=== PATIENT | female | born 1975 | race Hispanic/Latino ===

== ENCOUNTER 2019-08-26 14:37 | Emergency (ER) | payer MEDICAID ==
[2019-08-26] MEDS ORDERED: SODIUM CHLORIDE 0.9% 1000ML 1,000 ML IVS ONE (14:41)
[2019-08-26] MEDS ORDERED: ASPIRIN (CHEWABLE) 81 MG TAB PO ONE (14:41)
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
[2019-08-26] MEDS ORDERED: ONDANSETRON INJ 4 MG/2 ML VIAL IV ONE (15:05)
[2019-08-26] MEDS ORDERED: ACETAMINOPHEN 500 MG TAB PO ONE (15:05)
--- NOTE | 2019-08-26 15:06 | RAD ---
EXAM DESCRIPTION: Chest,1 View CLINICAL HISTORY: pain COMPARISON: None available TECHNIQUE: AP portable chest FINDINGS: The lungs are clear. There is no infiltrate or effusion. The heart is normal size. A poor respiratory effect is observed. Extensive lumbar fusion is observed. IMPRESSION: Poor inspiratory effect otherwise unremarkable chest Electronically signed by: Chay Rashid MD 08/26/2019 3:05 PM CDT
--- NOTE | 2019-08-26 15:54 | CT ---
EXAM DESCRIPTION: Head CLINICAL HISTORY: syncope COMPARISON: None available TECHNIQUE: Contiguous axial images through the head were obtained without intravenous contrast administration. Sagittal and coronal reconstructions were reviewed. FINDINGS: No evidence of acute major vascular territorial infarct or intraparenchymal hemorrhage. No intra-axial or extra-axial fluid collections are identified. The ventricles and cisterns appear normal in caliber. The sella and suprasellar regions appear normal. The structures of the posterior fossa are intact. The globes are intact bilaterally. Mucosal thickening of the bilateral maxillary sinuses, sphenoid sinuses, ethmoid air cells and frontal sinuses.. Review of the bones demonstrates no gross abnormality. IMPRESSION: No CT evidence of acute intracranial process. Mucosal thickening of all the paranasal sinuses. Clinical correlation for sinusitis is recommended. This exam was performed according to our departmental dose-optimization program, which includes automated exposure control, adjustment of the mA and/or kV according to patient size and/or use of iterative reconstruction technique. Electronically signed by: Stephanie Tavares MD 08/26/2019 3:53 PM CDT
--- NOTE | 2019-08-26 15:57 | CT ---
EXAM DESCRIPTION: Abdomen/Pelvis w/Contrast CLINICAL HISTORY: 44 years Female, pain vomiting COMPARISON: None available. TECHNIQUE: Contiguous 3 mm axial images were obtained from the lung bases to the level of the proximal femora after the administration of intravenous and oral contrast. Sagittal and coronal reconstructions were reviewed. FINDINGS: THORAX: The imaged lower thorax demonstrates no gross abnormality. LIVER: The liver demonstrates normal size and density with no intrahepatic biliary ductal dilatation or focal masses. GALLBLADDER: Surgically absent. PANCREAS: Appears normal with no cystic or solid lesions. SPLEEN: Normal ADRENAL GLANDS: Normal with no nodules or masses. KIDNEYS: Both kidneys enhance symmetrically with no hydronephrosis or nephrolithiasis or perinephric fluid collections. No focal masses are identified. The visualized ureters appear grossly unremarkable. STOMACH: Small hiatal hernia. The stomach is not well-distended limiting detailed evaluation. SMALL BOWEL: The small bowel loops demonstrate variable degrees of distention with no abnormal dilatation or other signs to suggest bowel obstruction. LARGE BOWEL: Large amount of fecal material is noted in the rectum and sigmoid colon, consistent with constipation. Moderate amount of fecal material is noted throughout the remainder of the colon. The appendix is well-visualized and appears normal No evidence of free intraperitoneal air or fluid. RETROPERITONEUM: The abdominal aorta is nonaneurysmal with no significant atherosclerosis. The inferior vena cava is normal in size and caliber. No abnormally enlarged retroperitoneal lymph nodes are identified. URINARY BLADDER:The urinary bladder is well-distended with no gross abnormality. The uterus and adnexa appear normal. ADDITIONAL FINDINGS: None. BONES: Burst fracture of L1 vertebral body with approximately 1.1 cm retropulsion of the fracture fragments. Posterior spinal fixation hardware is noted traversing T10-L3 vertebral bodies. IMPRESSION: 1. No acute intra-abdominal or intrapelvic process. 2. Constipation. 3. Burst fracture of L1 vertebral body with approximately 1.1 cm retropulsion of the fracture fragments. Posterior spinal fixation hardware is noted traversing T10-L3 vertebral bodies. This exam was performed according to our departmental dose-optimization program, which includes automated exposure control, adjustment of the mA and/or kV according to patient size and/or use of iterative reconstruction technique. Electronically signed by: Stephanie Tavares MD 08/26/2019 3:56 PM CDT
[2019-08-26 17:26] VITALS: BP 100/70; TEMP 97.5; O2SAT 97
== END 2019-08-26 16:55 | disposition home or self-care (01) ==
LOC: ER 14:37
DX: R55 Syncope and collapse (principal); R51 Headache; J32.9 Chronic sinusitis, unspecified; R07.9 Chest pain, unspecified; R10.84 Generalized abdominal pain; R11.2 Nausea with vomiting, unspecified; R06.02 Shortness of breath; I10 Essential (primary) hypertension; E11.9 Type 2 diabetes mellitus without complications; Z79.899 Other long term (current) drug therapy
CPT/HCPCS: 36415; 70450; 71045; 74177; 80053; 80320; 80329; 84484; 85025; 85610; 85730; 93005; 94760; J2405; J7030